=== PATIENT | male | born 1960 | race Caucasian/White ===

== ENCOUNTER → 2017-07-05 | Outpatient (CLI) | payer SELFPAY ==
[~2017-07-05] MED LIST: ATEN25 PO; Omeprazole20 M1 PO
[2017-07-05 13:45] LABS: CHOL/HDL RATIO 5.1; Cholesterol 257 mg/dL (50-200); HDL Cholesterol 50 mg/dL (>39); LDL/HDL RATIO 3.7; Low Density Lipoprotein Chol 184 mg/dL (0-110); Triglycerides 114 mg/dL (30-160); Very Low Density Lipoprot Chol 22 mg/dL (6-32)
== END ==
LOC: LAB SHORT 11:58 → LAB 11:58
PROVIDERS: Hospitalist
DX: E78.2 Mixed hyperlipidemia (principal)
CPT/HCPCS: 80061

== ENCOUNTER 2018-09-22 11:13 | Observation (INO) | payer BC ==
[~2018-09-22] VITALS: Ht 175.3 cm; Wt 68.0 kg
[2018-09-22] MEDS ORDERED: PRAV20 PO (11:35)
[2018-09-22 12:04] LABS: BASOPHILS ABSOLUTE AUTO 0.07 K/mm3 (0.00-0.23); BASOPHILS PERCENT AUTO 1 % (0-2); EOSINOPHILS ABSOLUTE AUTO 0.07 K/mm3 (0.00-0.68); EOSINOPHILS PERCENT AUTO 1 % (0-6); Hematocrit 47.2 % (37.0-53.0); Hemoglobin 15.8 g/dL (13.5-17.5); IMMATURE GRAN ABSOLUTE AUTO 0.02 K/mm3 (0.00-0.10); IMMATURE GRAN PERCENT AUTO 0 % (0-1); LYMPHOCYTES ABSOLUTE AUTO 2.17 K/mm3 (0.84-5.20); LYMPHOCYTES PERCENT AUTO 24 % (21-46); MONOCYTES ABSOLUTE AUTO 0.95 K/mm3 (0.16-1.47); MONOCYTES PERCENT AUTO 10 % (4-13); Mean Corpuscular HGB 31.2 pg (26.0-34.0); Mean Corpuscular HGB Conc 33.5 g/dL (31.5-36.5); Mean Corpuscular Volume 93 fL (80-100); Mean Platelet Volume 10.9 fL (9.1-12.4); NEUTROPHILS ABSOLUTE AUTO 5.88 K/mm3 (1.96-9.15); NEUTROPHILS PERCENT AUTO 64 % (41-73); Platelet Count 255 K/mm3 (150-400); RDW Coefficient Variation 12.4 % (11.7-14.2); RDW Standard Deviation 42.7 fL (35.1-46.3); Red Blood Cell Count 5.06 M/mm3 (4.30-5.90); White Blood Cell Count 9.16 K/mm3 (4.00-11.30)
[2018-09-22 12:16] LABS: Alanine Aminotransfer (ALT/SGP 28 U/L (12-78); Albumin, Blood 4.2 g/dL (3.4-5.0); Albumin/Globulin Ratio 1.2 (0.8-1.8); Alk Phos 96 U/L (50-136); Anion Gap 11 mmol/L (6-16); Aspartate Aminotrans (AST/SGOT 29 U/L (12-37); Bilirubin, Total 0.7 mg/dL (0.1-1.0); Blood Urea Nitrogen 16 mg/dL (8-24); Bun/Creatinine Ratio 18.7 (12.0-20.0); CO2, Blood 23 mmol/L (21-32); Chloride, Blood 106 mmol/L (98-108); Creatinine, Blood 0.86 mg/dL (0.60-1.20); Globulin, Blood 3.6 g/dL (2.2-4.0); Glomerular Filtration Rate >60 (60-); Glucose, Blood 84 mg/dL (70-99); Sodium, Blood 140 mmol/L (136-145); Total Protein, Blood 7.8 g/dL (6.4-8.2)
--- NOTE | 2018-09-22 18:37 | NUR ---
PT. LYING IN BED REPORTING FEET ACHING AND HAS A HEADACHE ALONG WITH STOMACH ACHE. FEET WRAPPED IN WARMED BLANKET. CALLED POISON CONTROL AFTER THEY CONTACTED ME REGARDING THE PT'S BLACK BITE. PT. HAS SLEPT SINCE ARRIVING TO THE FLOOR. COULD NOT SEE A BITE OF ANY KIND ON THE PT'S SCROTUM POISON CONTROL REPORTED THAT SOMETIMES THERE IS NOT A BITE ANDRES. NO OTHER NOTEABLE CHANGES.
--- NOTE | 2018-09-22 20:33 | NUR ---
DR James Christian called and checked on condition of PT and we discussed s/sx he is having, pain and spasm and bilat feet and le ache burn deep. and sue RN discussed case with Poison control. PT medicated with antiemetic and antispamotic and IV dilaudid 0.5 mg as well as zofran. Had abd xray and PT reports severe abd cramping spasm improved. Family at bedside supportive and concerned. Updated PT and Family in MD call and plan of care. PT is hard of hearing but able to communicate if you speak loudly. Continues to CO some bilat le pain elevated foot of bed. Resting quietly now.
--- NOTE | 2018-09-22 22:22 | NUR ---
Poison control called and reviewed PT's current s/sx and vital signs meds and response. They will continue to follow. PT is weal and shakey up to void, pain better but bilat le still painful.
--- NOTE | 2018-09-23 06:18 | NUR ---
UPDATED POISON CONTROL ON PTS S/SX VITAL SIGNS AND PAIN LEVEL. STILL HAVING PAIN OF 6.5 OF 10 THIS AM IN BILAT FEET AND NO UPPER LEG OR TESTICLE PAIN OR ABD PAIN. INTERMITTANT CHILLS NO FEVER VSS. tOLERATING ORALS TAKES FLUIDS WELL. STILL VERY UNSTEADY AND SHAKY ON FEET. ENCOURAGED CALLING FOR ASSIST OR USING URINAL AT BEDSIDE. NEEDED iv DILAUDID 1 MG X 2 DOSES DURING 12 HR SHIFT AND TYLENOL 650 MG JUST PRIOR TO SHIFT AND THIS AM , BACLOFEN FOR SPASM TYPE PAIN. MEDICATED WITH FE AT FOR SLEEP PROMOTION.
[2018-09-23 08:37] LABS: BASOPHILS ABSOLUTE AUTO 0.03 K/mm3 (0.00-0.23); BASOPHILS PERCENT AUTO 0 % (0-2); EOSINOPHILS ABSOLUTE AUTO 0.01 K/mm3 (0.00-0.68); EOSINOPHILS PERCENT AUTO 0 % (0-6); Hemoglobin 14.4 g/dL (13.5-17.5); IMMATURE GRAN ABSOLUTE AUTO 0.03 K/mm3 (0.00-0.10); IMMATURE GRAN PERCENT AUTO 0 % (0-1); LYMPHOCYTES ABSOLUTE AUTO 1.46 K/mm3 (0.84-5.20); LYMPHOCYTES PERCENT AUTO 12 % (21-46); MONOCYTES ABSOLUTE AUTO 1.14 K/mm3 (0.16-1.47); MONOCYTES PERCENT AUTO 9 % (4-13); Mean Corpuscular HGB 30.8 pg (26.0-34.0); Mean Corpuscular HGB Conc 33.5 g/dL (31.5-36.5); Mean Corpuscular Volume 92 fL (80-100); Mean Platelet Volume 10.9 fL (9.1-12.4); NEUTROPHILS ABSOLUTE AUTO 9.81 K/mm3 (1.96-9.15); NEUTROPHILS PERCENT AUTO 79 % (41-73); Platelet Count 216 K/mm3 (150-400); RDW Coefficient Variation 12.6 % (11.7-14.2); RDW Standard Deviation 41.9 fL (35.1-46.3); Red Blood Cell Count 4.68 M/mm3 (4.30-5.90); White Blood Cell Count 12.48 K/mm3 (4.00-11.30)
[2018-09-23 08:58] LABS: Alanine Aminotransfer (ALT/SGP 52 U/L (12-78); Albumin, Blood 3.7 g/dL (3.4-5.0); Albumin/Globulin Ratio 1.1 (0.8-1.8); Alk Phos 87 U/L (50-136); Anion Gap 8 mmol/L (6-16); Aspartate Aminotrans (AST/SGOT 47 U/L (12-37); Bilirubin, Total 0.8 mg/dL (0.1-1.0); Blood Urea Nitrogen 13 mg/dL (8-24); Bun/Creatinine Ratio 18.1 (12.0-20.0); CO2, Blood 23 mmol/L (21-32); Calcium, Blood 8.6 mg/dL (8.5-10.1); Chloride, Blood 103 mmol/L (98-108); Creatinine, Blood 0.72 mg/dL (0.60-1.20); Globulin, Blood 3.4 g/dL (2.2-4.0); Glomerular Filtration Rate >60 (60-); Glucose, Blood 116 mg/dL (70-99); Potassium, Blood 4.1 mmol/L (3.5-5.5); Sodium, Blood 134 mmol/L (136-145); Total Protein, Blood 7.1 g/dL (6.4-8.2)
[2018-09-23 12:54] LABS: Source, Urine Clean Catch
[2018-09-23 13:00] LABS: Appearance, Urine Clear (Clear); Bilirubin, Urine Neg (Neg); Blood, Urine Neg (Neg); Color, Urine Yellow (P-Yellow); Glucose Qualitative, Urine Neg (Neg); Ketones, Urine 3+ (Neg); Leukocyte Esterase, Urine Neg (Neg); Nitrite, Urine Neg (Neg); Protein, Urine Neg (Neg); Specific Gravity, Urine 1.015 (1.003-1.022); Urobilinogen, Urine NORM (Normal)
[2018-09-23 13:32] LABS: CPK Creatine Kinase 269 U/L (39-308)
--- NOTE | 2018-09-23 17:27 | NUR ---
SHIFT SUMMARY PT A&Ox4. CALM AND COOPERATIVE WITH CARE. PT RESTING IN BED, UP TO BATHROOM TO VOID. PT REPORTS BURNING, ACHE IN BLE, ANKLE JOINTS AND KNEES AFFECTED THE MOST, MEDICATED PER EMAR. PT REPORTS MUSCLES SPASMS, MEDICATED x1 WITH ATIVAN. PT'S TEETH CHATTERING, PT DENIES CHILLS AND FEELING COLD. PT DENIES SOB AND N/V DURING SHIFT. NO BM, PT STATES PASSING FLATULENCE. PT RECEIVING IV FLUIDS BOLUS THIS EVEING. VSS. NO OTHER ACUTE CHANGES NOTED DURING SHIFT. WILL CONTINUE TO MONITOR UNTIL REPORT GIVEN TO ONCOMING RN.
[2018-09-24 06:33] LABS: BASOPHILS ABSOLUTE AUTO 0.04 K/mm3 (0.00-0.23); BASOPHILS PERCENT AUTO 1 % (0-2); EOSINOPHILS ABSOLUTE AUTO 0.03 K/mm3 (0.00-0.68); EOSINOPHILS PERCENT AUTO 0 % (0-6); Hematocrit 40.2 % (37.0-53.0); Hemoglobin 13.9 g/dL (13.5-17.5); IMMATURE GRAN ABSOLUTE AUTO 0.02 K/mm3 (0.00-0.10); IMMATURE GRAN PERCENT AUTO 0 % (0-1); LYMPHOCYTES PERCENT AUTO 14 % (21-46); MONOCYTES ABSOLUTE AUTO 0.84 K/mm3 (0.16-1.47); MONOCYTES PERCENT AUTO 10 % (4-13); Mean Corpuscular HGB 31.8 pg (26.0-34.0); Mean Corpuscular HGB Conc 34.6 g/dL (31.5-36.5); Mean Corpuscular Volume 92 fL (80-100); Mean Platelet Volume 10.8 fL (9.1-12.4); NEUTROPHILS ABSOLUTE AUTO 6.41 K/mm3 (1.96-9.15); NEUTROPHILS PERCENT AUTO 75 % (41-73); Platelet Count 188 K/mm3 (150-400); RDW Coefficient Variation 12.4 % (11.7-14.2); RDW Standard Deviation 42.1 fL (35.1-46.3); Red Blood Cell Count 4.37 M/mm3 (4.30-5.90); White Blood Cell Count 8.54 K/mm3 (4.00-11.30)
[2018-09-24 06:49] LABS: Anion Gap 9 mmol/L (6-16); Blood Urea Nitrogen 4 mg/dL (8-24); Bun/Creatinine Ratio 5.7 (12.0-20.0); CO2, Blood 26 mmol/L (21-32); Calcium, Blood 8.9 mg/dL (8.5-10.1); Chloride, Blood 102 mmol/L (98-108); Glomerular Filtration Rate >60 (60-); Glucose, Blood 104 mg/dL (70-99); Potassium, Blood 3.8 mmol/L (3.5-5.5); Sodium, Blood 137 mmol/L (136-145)
--- NOTE | 2018-09-24 07:36 | NUR ---
Rn summary: Patient is alert and oriented x4. He is [place]. Pt c/o shakes and being clammy. Pt did get up and shower last evening. Pt states he did not rest more than a few hours. Pt was medicated for pain x2 this shift with good relief. Pt is up in room independantly. Pt has pain in his feet and lower legs with some cramping. No nausia. Call light in reach.
--- NOTE | 2018-09-24 14:47 | NUR ---
PT SPOUSE CALLED EXPRESSING CONCERNS REGARDING PATIENT CONDITION, ASKING FOR PATIENT TO BE TRANSFERED TO [facility]. NOTIFIED DR DALTON, DR DALTON TO CONTACT SPOUSE. WILL CONTINUE TO MONITOR.
[2018-09-24] MEDS ORDERED: LORA.5 PO (17:57)
[2018-09-24] MEDS ORDERED: IBUP600 PO (17:57)
[2018-09-24] MEDS ORDERED: CEPH500 PO (18:00)
--- NOTE | 2018-09-24 18:37 | NUR ---
DISCHARGE SUMMARY PT A&Ox4. CALM AND COOPERATIVE WITH CARE. PT RESTING IN BED DURING SHIFT. UP IND IN ROOM AND SBA IN HALLS. PT REPORTS PAIN IN BLE, KNEES DOWN, 3-4/10 ON PAIN SCALE, MEDICATED X1 WITH TYLENOL. MUSCLE SPASMS/TREMORS NOTED, MEDICATED X1 WITH ATIVAN. PT DENIES SOB AND N/V T/O SHIFT. ELEVATED BP NOTED, MEDICATED PER SCHEDULE MEDICATION WITH POSITIVE RESULTS. OTHER VSS. NO OHTER ACUTE CHANGE NOTED DURING SHIFT. LUC RN FROM POSION CONTROL UPDATED THIS AFTERNOON. PT AND FAMILY EDUCATED ON DISCHARGE INSTRUCTIONS, MEDICATIONS AND FOLLOW UP APPOINTMENTS. PT RECEIVED PHYSICAL PRESCRIPTIONS TO TAKE TO PHARMACY. PT LEFT ROOM VIA WHEELCHAIR, PT STABLE UPON DISCHRAGE.
== END 2018-09-24 18:33 | disposition home or self-care (01) ==
LOC: ER 11:13 → MEDS 11:15 → ENPENDDIS 09-24 17:20 → MEDS 09-24 18:33
PROVIDERS: Emergency Medicine; ADMIT Family Medicine
DX: T63.311A Toxic effect of venom of black widow spider, accidental (unintentional), initial encounter (principal); R10.9 Unspecified abdominal pain; R93.89 Abnormal findings on diagnostic imaging of other specified body structures; M62.838 Other muscle spasm; E78.5 Hyperlipidemia, unspecified; I10 Essential (primary) hypertension; K21.9 Gastro-esophageal reflux disease without esophagitis; Z79.899 Other long term (current) drug therapy
CPT/HCPCS: 36415; 74018; 74177; 80048; 80053; 81003; 82550; 85025; 90471; 90714; 96361; 96374; 96375; 96376; 99285-25; A9270; G0378; J1170; J1885; J2060; J2270; J2405; J7030; Q9967

== ENCOUNTER → 2019-12-02 | Outpatient (CLI) | payer BC ==
[~2019-12-02] MED LIST changes: +CEPH500 PO; +IBUP600 PO; +LORA.5 PO; +PRAV20 PO
[2019-12-02 16:12] LABS: Alanine Aminotransfer (ALT/SGP 28 U/L (12-78); Albumin/Globulin Ratio 1.3 (0.8-1.8); Alk Phos 73 U/L (50-136); Anion Gap 4 mmol/L (6-16); Aspartate Aminotrans (AST/SGOT 14 U/L (12-37); Bilirubin, Total 0.5 mg/dL (0.1-1.0); Blood Urea Nitrogen 14 mg/dL (8-24); Bun/Creatinine Ratio 15.2 (12.0-20.0); CO2, Blood 31 mmol/L (21-32); Calcium, Blood 9.2 mg/dL (8.5-10.1); Chloride, Blood 106 mmol/L (98-108); Creatinine, Blood 0.92 mg/dL (0.60-1.20); Globulin, Blood 3.1 g/dL (2.2-4.0); Glomerular Filtration Rate >60 (60-); Glucose, Blood 96 mg/dL (70-99); Potassium, Blood 4.7 mmol/L (3.5-5.5); Sodium, Blood 141 mmol/L (136-145); Total Protein, Blood 7.1 g/dL (6.4-8.2)
[2019-12-03 17:25] LABS: CHOL/HDL RATIO 3.9; Cholesterol 213 mg/dL (50-200); HDL Cholesterol 54 mg/dL (>39); LDL/HDL RATIO 2.7; Low Density Lipoprotein Chol 148 mg/dL (0-110); Triglycerides 53 mg/dL (30-160); Very Low Density Lipoprot Chol 10 mg/dL (6-32)
== END | disposition home or self-care (01) ==
LOC: LAB 14:50 → LAB SHORT 14:50
PROVIDERS: Hospitalist
DX: E78.2 Mixed hyperlipidemia (principal); R73.9 Hyperglycemia, unspecified; I10 Essential (primary) hypertension
CPT/HCPCS: 80053; 80061; 83036

== ENCOUNTER 2020-08-27 06:14 | Inpatient (IN) | payer BC ==
[~2020-08-27] VITALS: Ht 177.8 cm; Wt 86.3 kg
[2020-08-27 06:47] LABS: BASOPHILS ABSOLUTE AUTO 0.04 K/mm3 (0.00-0.23); BASOPHILS PERCENT AUTO 1 % (0-2); EOSINOPHILS ABSOLUTE AUTO 0.11 K/mm3 (0.00-0.68); EOSINOPHILS PERCENT AUTO 2 % (0-6); Hemoglobin 15.4 g/dL (13.5-17.5); IMMATURE GRAN ABSOLUTE AUTO 0.01 K/mm3 (0.00-0.10); IMMATURE GRAN PERCENT AUTO 0 % (0-1); LYMPHOCYTES ABSOLUTE AUTO 2.19 K/mm3 (0.84-5.20); LYMPHOCYTES PERCENT AUTO 34 % (21-46); MONOCYTES ABSOLUTE AUTO 0.59 K/mm3 (0.16-1.47); MONOCYTES PERCENT AUTO 9 % (4-13); Mean Corpuscular HGB 30.9 pg (26.0-34.0); Mean Corpuscular HGB Conc 34.2 g/dL (31.5-36.5); Mean Corpuscular Volume 90 fL (80-100); Mean Platelet Volume 10.6 fL (9.1-12.4); NEUTROPHILS ABSOLUTE AUTO 3.56 K/mm3 (1.96-9.15); NEUTROPHILS PERCENT AUTO 55 % (41-73); Platelet Count 214 K/mm3 (150-400); RDW Coefficient Variation 12.5 % (11.7-14.2); Red Blood Cell Count 4.99 M/mm3 (4.30-5.90)
[2020-08-27 06:58] LABS: Alanine Aminotransfer (ALT/SGP 28 U/L (12-78); Albumin, Blood 3.7 g/dL (3.4-5.0); Albumin/Globulin Ratio 1.1 (0.8-1.8); Alk Phos 73 U/L (50-136); Anion Gap 4 mmol/L (6-16); Aspartate Aminotrans (AST/SGOT 17 U/L (12-37); Bilirubin, Total 0.5 mg/dL (0.1-1.0); Blood Urea Nitrogen 17 mg/dL (8-24); Bun/Creatinine Ratio 19.3 (12.0-20.0); CO2, Blood 29 mmol/L (21-32); Calcium, Blood 8.8 mg/dL (8.5-10.1); Chloride, Blood 107 mmol/L (98-108); Creatinine, Blood 0.88 mg/dL (0.60-1.20); Globulin, Blood 3.5 g/dL (2.2-4.0); Glomerular Filtration Rate >60 (60-); Glucose, Blood 99 mg/dL (70-99); Sodium, Blood 140 mmol/L (136-145); Total Protein, Blood 7.2 g/dL (6.4-8.2); Troponin I 0.103 ng/mL (0.000-0.040)
[2020-08-27 08:09] LABS: CHOL/HDL RATIO 3.8; Cholesterol 214 mg/dL (50-200); HDL Cholesterol 56 mg/dL (>39); LDL/HDL RATIO 2.5; Low Density Lipoprotein Chol 141 mg/dL (0-110); Triglycerides 83 mg/dL (30-160); Very Low Density Lipoprot Chol 16 mg/dL (6-32)
[2020-08-27 08:14] LABS: International Normalized Ratio 0.95; Prothrombin Time Results 10.3 Sec (9.7-11.5)
[2020-08-27 12:12] LABS: SARS-Cov-2 (COVID-19) PCR, MMC NEGATIVE (NEGATIVE)
--- NOTE | 2020-08-27 12:42 | NUR ---
UPDATE PT TAKEN TO [facility]IL INSPECTOR FOR ANGIOGRAM. WILL AWAIT RETURN.
--- NOTE | 2020-08-27 14:49 | NUR ---
UPDATE PT RETRUNED FROM THE SUPERVISOR VAT HOUSE. VS STABLE. PT DENIES ANY PAIN. RIGHT RADIAL SITE WITH 8ML IN TR BAND. NO HEMATOMA, BLEEDING, OR BRUISING NOTED. PLAN FOR PT TO BE TRANSFERRED TO [facility] FOR CABG. REPORT GIVEN TO FEI CERNA AT [facility]. PT AWAITING TRANSPORT.
== END 2020-08-27 15:09 | disposition short-term general hospital (02) | DRG 282 ==
LOC: ER 06:14 → ERHOLD 07:48 → ICUE 07:48
PROVIDERS: Emergency Medicine; Internal Medicine Cardiovascular Disease; Pharmacist; ADMIT Family Medicine
PROC: 4A023N7 Measurement of Cardiac Sampling and Pressure, Left Heart, Percutaneous Approach (ICD-10-PCS; principal; 2020-08-27)
PROC: B2111ZZ Fluoroscopy of Multiple Coronary Arteries using Low Osmolar Contrast (ICD-10-PCS; 2020-08-27)
DX: I21.4 Non-ST elevation (NSTEMI) myocardial infarction (principal); F17.220 Nicotine dependence, chewing tobacco, uncomplicated; E78.5 Hyperlipidemia, unspecified; K21.9 Gastro-esophageal reflux disease without esophagitis; I10 Essential (primary) hypertension; I25.118 Atherosclerotic heart disease of native coronary artery with other forms of angina pectoris
CPT/HCPCS: 36415; 71046; 80053; 80061; 83690; 84484; 85025; 85379; 85610; 85730; 93005; 93010; 93306; 93454; 93458; 96374-59; 99152; 99153; 99285-25; A9270; C1769; C1894; J1644; J2250; J3010; J7030; J7050; Q9967; U0004

== ENCOUNTER 2020-10-02 10:40 | Inpatient (IN) | payer BC ==
[~2020-10-02] VITALS: Ht 177.8 cm; Wt 78.5 kg
[2020-10-02 11:08] LABS: BASOPHILS ABSOLUTE AUTO 0.03 K/mm3 (0.00-0.23); BASOPHILS PERCENT AUTO 0 % (0-2); EOSINOPHILS PERCENT AUTO 2 % (0-6); Hematocrit 42.1 % (37.0-53.0); IMMATURE GRAN ABSOLUTE AUTO 0.02 K/mm3 (0.00-0.10); IMMATURE GRAN PERCENT AUTO 0 % (0-1); LYMPHOCYTES PERCENT AUTO 21 % (21-46); MONOCYTES ABSOLUTE AUTO 0.76 K/mm3 (0.16-1.47); MONOCYTES PERCENT AUTO 9 % (4-13); Mean Corpuscular HGB 30.1 pg (26.0-34.0); Mean Corpuscular HGB Conc 33.3 g/dL (31.5-36.5); Mean Corpuscular Volume 91 fL (80-100); Mean Platelet Volume 10.9 fL (9.1-12.4); NEUTROPHILS ABSOLUTE AUTO 5.64 K/mm3 (1.96-9.15); NEUTROPHILS PERCENT AUTO 67 % (41-73); Platelet Count 213 K/mm3 (150-400); RDW Coefficient Variation 12.4 % (11.7-14.2); RDW Standard Deviation 40.9 fL (35.1-46.3); Red Blood Cell Count 4.65 M/mm3 (4.30-5.90); White Blood Cell Count 8.45 K/mm3 (4.00-11.30)
[2020-10-02 11:34] LABS: Alanine Aminotransfer (ALT/SGP 18 U/L (12-78); Albumin, Blood 3.7 g/dL (3.4-5.0); Albumin/Globulin Ratio 1.1 (0.8-1.8); Alk Phos 91 U/L (50-136); Anion Gap 5 mmol/L (6-16); Aspartate Aminotrans (AST/SGOT 15 U/L (12-37); Bilirubin, Total 0.5 mg/dL (0.1-1.0); Blood Urea Nitrogen 13 mg/dL (8-24); Bun/Creatinine Ratio 13.1 (12.0-20.0); CO2, Blood 26 mmol/L (21-32); Calcium, Blood 8.8 mg/dL (8.5-10.1); Chloride, Blood 105 mmol/L (98-108); Creatinine, Blood 0.99 mg/dL (0.60-1.20); Globulin, Blood 3.4 g/dL (2.2-4.0); Glomerular Filtration Rate >60 (60-); Glucose, Blood 111 mg/dL (70-99); Sodium, Blood 136 mmol/L (136-145); Total Protein, Blood 7.1 g/dL (6.4-8.2); Troponin I <0.015 ng/mL (0.000-0.040)
[2020-10-02] MEDS ORDERED: ASPI81CH PO (15:47)
--- NOTE | 2020-10-02 16:12 | NUR ---
ADMISSION PT ARRIVED TO PCU THIS AFTERNOON. PT REPORTS MILD INTERMITTEN CHEST PAIN. PT IS ALERT AND ORIENTED, INDEPENDENT IN THE ROOM. PT IS RESTING AND VISITING WITH HIS AT THIS TIME
--- NOTE | 2020-10-02 18:47 | NUR ---
SHIFT SUMMARY PT WAS ADMITTED TO PCU THIS AFTERNOON AFTER HAVING CHEST PAIN AND ELEVATED TROPONIN. PT'S CP HAS SUBSIDED, VS STABLE, PT ON RA. PT HAD A RECENT CABG COMPLETED AT [facility] APPOXIMATELY 5 WEEKS AGO. PT IS RESTING IN HIS ROOM AT THIS TIME. CARDIOLOGY HAS BEEN CONSULTED BUT HAS NOT SEEN THE PATIENT YET IN PCU. MEDICAL RECORDS FROM [facility] HAVE BEEN REQUESTED.
[2020-10-02 20:17] LABS: International Normalized Ratio 1.01; Prothrombin Time Results 10.9 Sec (9.7-11.5)
--- NOTE | 2020-10-02 22:02 | NUR ---
HOSP NOTIFIED HOSPITALIST NOTIFIED THAT THE PT HAD A 6 BEAT RUN OF VTACH @ APPROX 2135 & CONTINUES TO HAVE OCCASIONAL PVC'S. PT WAS RESTING IN BED AT THE TIME, HE REMAINS ASYMPTOMATIC. MAGNESIUM LEVEL WAS ORDERED, LAB NOTIFIED.
[2020-10-03 04:16] LABS: Hematocrit 40.5 % (37.0-53.0); Hemoglobin 13.6 g/dL (13.5-17.5); Mean Corpuscular HGB 29.8 pg (26.0-34.0); Mean Corpuscular HGB Conc 33.6 g/dL (31.5-36.5); Mean Corpuscular Volume 89 fL (80-100); Mean Platelet Volume 10.9 fL (9.1-12.4); Platelet Count 189 K/mm3 (150-400); RDW Coefficient Variation 12.5 % (11.7-14.2); RDW Standard Deviation 40.3 fL (35.1-46.3); Red Blood Cell Count 4.56 M/mm3 (4.30-5.90); White Blood Cell Count 8.03 K/mm3 (4.00-11.30)
[2020-10-03 05:00] LABS: Anion Gap 6 mmol/L (6-16); Blood Urea Nitrogen 11 mg/dL (8-24); Bun/Creatinine Ratio 13.9 (12.0-20.0); CO2, Blood 26 mmol/L (21-32); Calcium, Blood 8.7 mg/dL (8.5-10.1); Chloride, Blood 106 mmol/L (98-108); Creatinine, Blood 0.79 mg/dL (0.60-1.20); Glomerular Filtration Rate >60 (60-); Glucose, Blood 95 mg/dL (70-99); Sodium, Blood 138 mmol/L (136-145)
--- NOTE | 2020-10-03 05:35 | NUR ---
SHIFT SUMMARY PT HAS BEEN ABLE TO REST THROUGH THE NIGHT WITH NO C/O CP/PRESSURE, VSS, ON RA, INDEPENDENT IN THE ROOM. PT IS CURRENTLY ON A HEPARIN GTT INFUSING @ 13 U/KG/HR. PT REMAINS ASYMPTOMATIC TO PVC'S. WAS ABLE TO CONSULT ON THE PT LAST NIGHT, PT'S WAS AT THE BEDSIDE DURING THE CONVERSATION. PT HAS BEEN NPO SINCE MIDNIGHT PER ORDERS. ECHO SCHEDULED FOR THIS AM. WCTM & REPORT TO DAY RN. CALL LIGHT IN REACH.
--- NOTE | 2020-10-03 10:15 | NUR ---
echocardiogram completed
[2020-10-03 10:28] LABS: SARS-Cov-2 (COVID-19) PCR, MMC NEGATIVE (NEGATIVE)
--- NOTE | 2020-10-03 13:13 | NUR ---
PT TO PRODUCT DEVELOPMENT CHEMIST PT TO PRODUCT DEVELOPMENT CHEMIST WITH CHART, CONSENT, MEDICAL RECORDS FROM [facility] BY JANNETTE.
--- NOTE | 2020-10-03 19:40 | NUR ---
SHIFT SUMMARY PT ALERT AND ORIENTED X 4. HR STABLE. BP STABLE. NO CP OR PRESSURE REPORTED DURING SHIFT. PT IND IN ROOM. MAP REMAINED ABOVE 65. PT TO [employer] SUPER[facility] THIS AFTERNOON. PT NPO PRIOR TO PROCEDURE. UPON ARRIVAL BACK TO UNIT FROM [employer] [facility] POST OP VITAL SIGNS STABLE. L RADIAL SITE WNL, TR BAND IN PLACE. AIR REMOVAL BEGAN AT 1840. 4 ML OF AIR REMOVED PRIOR TO END OF SHIFT. TOTAL OF 9 ML IN TR BAND. SITE WNL. PULSES STRONG. SENSATION INTACT IN FINGERS. HEPARIN GTT DC'D PER PHYSICIAN ORDER. ARM BOARD IN PLACE. PT'S AT BEDSIDE. REPORT GIVEN TO NEHEMIAH LEWIS.
--- NOTE | 2020-10-03 23:54 | NUR ---
TR BAND OFF AT 2333. TEGADERM PLACED. SPLINT IN PLACE.
--- NOTE | 2020-10-04 05:12 | NUR ---
SHIFT SUMMARY PT IS A/O X4. THERE HAVE BEEN NO ACUTE CHANGES. PT HAS TR BAND REMOVED AND SPLINT IN PLACE. SKING IS CDI WITH SOCO HEMATOMA. PT DENIES CHEST PAIN OR SOB. PT IS UP AD JUDY IN ROOM. USING CALL LIGHT APPROPRIETLY.
[2020-10-04] MEDS ORDERED: Metoprolol Tart25 MG PO (11:05)
[2020-10-04] MEDS ORDERED: ATORVASTATIN CA80 MG PO (11:07)
[2020-10-04] MEDS ORDERED: NITR.4SL SL (11:07)
[2020-10-04] MEDS ORDERED: TICA90TA PO (11:07)
--- NOTE | 2020-10-04 14:09 | NUR ---
PT DISHCARGE PT PROVIDED WITH DISCHARGE INSTRUCTIONS PER PHYSICIAN. PT NOTIFIED OF FOLLOW UP APT'S AND PHYSICIAN CONTACT INFORMATION. PROVIDED WITH RADIAL SITE CARE INFORMATION PACKET. VS STABLE. IV REMOVED. TELE REMOVED. MEDICATIONS FAXED TO PT'S PREFERRED PHARMACY. PT BROUGHT WITH ALL BELONGINGS OUT TO GUEST ENTERANCE FOR MOTHER TO PICK HIM UP.
== END 2020-10-04 13:20 | disposition home or self-care (01) | DRG 246 ==
LOC: ER 10:40 → PCU 14:44
PROVIDERS: Pharmacist; Physician Assistant; ADMIT Internal Medicine
PROC: 027235Z Dilation of Coronary Artery, Three Arteries with Two Drug-eluting Intraluminal Devices, Percutaneous Approach (ICD-10-PCS; principal; 2020-10-03)
PROC: B2111ZZ Fluoroscopy of Multiple Coronary Arteries using Low Osmolar Contrast (ICD-10-PCS; 2020-10-03)
PROC: B2181ZZ Fluoroscopy of Left Internal Mammary Bypass Graft using Low Osmolar Contrast (ICD-10-PCS; 2020-10-03)
PROC: B2131ZZ Fluoroscopy of Multiple Coronary Artery Bypass Grafts using Low Osmolar Contrast (ICD-10-PCS; 2020-10-03)
PROC: B240ZZ3 Ultrasonography of Single Coronary Artery, Intravascular (ICD-10-PCS; 2020-10-03)
DX: I97.190 Other postprocedural cardiac functional disturbances following cardiac surgery (principal); I21.A9 Other myocardial infarction type; I25.42 Coronary artery dissection; T82.218A Other mechanical complication of coronary artery bypass graft, initial encounter; Z20.822 Contact with and (suspected) exposure to COVID-19; K21.9 Gastro-esophageal reflux disease without esophagitis; E78.5 Hyperlipidemia, unspecified; I25.10 Atherosclerotic heart disease of native coronary artery without angina pectoris; I10 Essential (primary) hypertension; Z90.89 Acquired absence of other organs; Z95.1 Presence of aortocoronary bypass graft; Z79.899 Other long term (current) drug therapy; Z87.891 Personal history of nicotine dependence; Z79.82 Long term (current) use of aspirin; Y83.2 Surgical operation with anastomosis, bypass or graft as the cause of abnormal reaction of the patient, or of later complication, without mention of misadventure at the time of the procedure
CPT/HCPCS: 36415; 71046; 76937; 80048; 80053; 83735; 84484; 85025; 85027; 85347; 85610; 85730; 92978; 93005; 93010; 93306; 93455; 96374; 96375; 99152; 99153; 99285-25; A9270; C1725; C1753; C1769; C1874; C1887; C1894; C9600; C9601; J1644; J2250; J2270; J2405; J3010; J7030; J7040; J7050; Q9967; U0004

== ENCOUNTER 2022-02-28 09:43 | Day surgery (SDC) | payer BC ==
[~2022-02-28 09:43] MED LIST changes: +ASPI81CH PO; +ATORVASTATIN CA80 MG PO; +Metoprolol Tart25 MG PO; +NITR.4SL SL; +TICA90TA PO
[2022-02-28] MEDS ORDERED: ACET325 (11:16)
== END 2022-02-28 12:35 | disposition home or self-care (01) ==
DX: Z12.11 Encounter for screening for malignant neoplasm of colon (principal); Z86.010 Personal history of colon polyps; K21.9 Gastro-esophageal reflux disease without esophagitis; E78.5 Hyperlipidemia, unspecified; I10 Essential (primary) hypertension; Z87.891 Personal history of nicotine dependence; Z79.82 Long term (current) use of aspirin; Z79.899 Other long term (current) drug therapy

== ENCOUNTER → 2024-07-09 | Outpatient (CLI) | payer BC ==
[~2024-07-09] MED LIST changes: +ACET325
[2024-07-09 18:59] LABS: BASOPHILS ABSOLUTE AUTO 0.05 K/mm3 (0.00-0.23); BASOPHILS PERCENT AUTO 1 % (0-2); EOSINOPHILS ABSOLUTE AUTO 0.05 K/mm3 (0.00-0.68); EOSINOPHILS PERCENT AUTO 1 % (0-6); Hemoglobin 14.5 g/dL (13.5-17.5); IMMATURE GRAN ABSOLUTE AUTO 0.01 K/mm3 (0.00-0.10); IMMATURE GRAN PERCENT AUTO 0 % (0-1); LYMPHOCYTES ABSOLUTE AUTO 1.28 K/mm3 (0.84-5.20); LYMPHOCYTES PERCENT AUTO 36 % (21-46); MONOCYTES ABSOLUTE AUTO 0.53 K/mm3 (0.16-1.47); MONOCYTES PERCENT AUTO 15 % (4-13); Mean Corpuscular HGB Conc 34.5 g/dL (31.5-36.5); Mean Corpuscular Volume 96 fL (80-100); Mean Platelet Volume 11.1 fL (9.1-12.4); NEUTROPHILS ABSOLUTE AUTO 1.66 K/mm3 (1.96-9.15); NEUTROPHILS PERCENT AUTO 46 % (41-73); Platelet Count 155 K/mm3 (150-400); RDW Coefficient Variation 12.8 % (11.7-14.2); RDW Standard Deviation 45.5 fL (35.1-46.3); Red Blood Cell Count 4.39 M/mm3 (4.30-5.90); White Blood Cell Count 3.58 K/mm3 (4.00-11.30)
[2024-07-09 19:36] LABS: Albumin, Blood 3.9 g/dL (3.4-5.0); Albumin/Globulin Ratio 1.2 (0.8-1.8); Bilirubin, Total 0.4 mg/dL (0.1-1.0); Bun/Creatinine Ratio 7.7 (12.0-20.0); Calcium, Blood 9.2 mg/dL (8.5-10.1); Creatinine, Blood 0.65 mg/dL (0.60-1.20); Globulin, Blood 3.2 g/dL (2.2-4.0); Potassium, Blood 4.4 mmol/L (3.5-5.5); Thyroid Stimulating Hormone 2.49 uIU/mL (0.360-4.800); Total Protein, Blood 7.1 g/dL (6.4-8.2)
== END ==
LOC: LAB 17:31 → LAB SHORT 17:31
PROVIDERS: Hospitalist
DX: R22.1 Localized swelling, mass and lump, neck (principal); R63.4 Abnormal weight loss; Z12.5 Encounter for screening for malignant neoplasm of prostate
CPT/HCPCS: 80053; 84443; 85025; 85651; G0103

== ENCOUNTER → 2024-08-11 | Outpatient (CLI) | payer BC ==
[2024-08-11 19:15] LABS: BASOPHILS ABSOLUTE AUTO 0.02 K/mm3 (0.00-0.23); BASOPHILS PERCENT AUTO 0 % (0-2); EOSINOPHILS PERCENT AUTO 0 % (0-6); Hematocrit 43.7 % (37.0-53.0); Hemoglobin 15.2 g/dL (13.5-17.5); IMMATURE GRAN ABSOLUTE AUTO 0.01 K/mm3 (0.00-0.10); IMMATURE GRAN PERCENT AUTO 0 % (0-1); LYMPHOCYTES ABSOLUTE AUTO 0.61 K/mm3 (0.84-5.20); LYMPHOCYTES PERCENT AUTO 8 % (21-46); MONOCYTES ABSOLUTE AUTO 0.88 K/mm3 (0.16-1.47); MONOCYTES PERCENT AUTO 12 % (4-13); Mean Corpuscular HGB 33.3 pg (26.0-34.0); Mean Corpuscular HGB Conc 34.8 g/dL (31.5-36.5); Mean Corpuscular Volume 96 fL (80-100); Mean Platelet Volume 11.7 fL (9.1-12.4); NEUTROPHILS ABSOLUTE AUTO 5.79 K/mm3 (1.96-9.15); NEUTROPHILS PERCENT AUTO 79 % (41-73); Platelet Count 217 K/mm3 (150-400); RDW Coefficient Variation 12.6 % (11.7-14.2); RDW Standard Deviation 44.2 fL (35.1-46.3); Red Blood Cell Count 4.57 M/mm3 (4.30-5.90); White Blood Cell Count 7.31 K/mm3 (4.00-11.30)
[2024-08-11 20:15] LABS: Albumin, Blood 3.3 g/dL (3.4-5.0); Bilirubin, Total 0.3 mg/dL (0.1-1.0); Bun/Creatinine Ratio 11.4 (12.0-20.0); Creatinine, Blood 0.79 mg/dL (0.60-1.20); Globulin, Blood 3.2 g/dL (2.2-4.0); Potassium, Blood 4.1 mmol/L (3.5-5.5); Total Protein, Blood 6.5 g/dL (6.4-8.2)
[2024-08-14 17:14] LABS: HEPATITIS C AB CIA INTERP Negative (Negative); HEPATITIS C ANTIBODY CIA INDEX 0.03 IV
== END ==
LOC: LAB SHORT 18:37 → LAB 18:37
PROVIDERS: Hospitalist
DX: R74.01 Elevation of levels of liver transaminase levels (principal); R22.1 Localized swelling, mass and lump, neck
CPT/HCPCS: 80053; 85025; 86803

== ENCOUNTER 2024-11-04 10:53 | Observation (INO) | payer BC ==
[~2024-11-04] VITALS: Ht 180.3 cm; Wt 67.8 kg
[2024-11-04 11:23] LABS: BASOPHILS ABSOLUTE AUTO 0.05 K/mm3 (0.00-0.23); BASOPHILS PERCENT AUTO 1 % (0-2); EOSINOPHILS ABSOLUTE AUTO 0.04 K/mm3 (0.00-0.68); EOSINOPHILS PERCENT AUTO 1 % (0-6); Hematocrit 42.8 % (37.0-53.0); Hemoglobin 15.3 g/dL (13.5-17.5); IMMATURE GRAN ABSOLUTE AUTO 0.01 K/mm3 (0.00-0.10); IMMATURE GRAN PERCENT AUTO 0 % (0-1); LYMPHOCYTES ABSOLUTE AUTO 1.22 K/mm3 (0.84-5.20); LYMPHOCYTES PERCENT AUTO 23 % (21-46); MONOCYTES ABSOLUTE AUTO 0.69 K/mm3 (0.16-1.47); MONOCYTES PERCENT AUTO 13 % (4-13); Mean Corpuscular HGB Conc 35.7 g/dL (31.5-36.5); Mean Corpuscular Volume 94 fL (80-100); NEUTROPHILS ABSOLUTE AUTO 3.42 K/mm3 (1.96-9.15); NEUTROPHILS PERCENT AUTO 63 % (41-73); NRBC ABSOLUTE 0.00 K/mm3 (0.00-0.02); NRBC Auto 0.0 /100 WBC (0.0-0.2); Platelet Count 156 K/mm3 (150-400); RDW Coefficient Variation 13.3 % (11.7-14.2); RDW Standard Deviation 46.5 fL (35.1-46.3)
[2024-11-04 11:41] LABS: Alanine Aminotransfer (ALT/SGP 63.0 U/L (12-78); Albumin, Blood 3.6 g/dL (3.4-5.0); Albumin/Globulin Ratio 0.9 (0.8-1.8); Anion Gap 11.0 mmol/L (3-11); Aspartate Aminotrans (AST/SGOT 81.0 U/L (12-37); Bilirubin, Total 0.5 mg/dL (0.1-1.0); Blood Urea Nitrogen 7.0 mg/dL (8-24); CO2, Blood 26.0 mmol/L (21-32); Calcium, Blood 9.3 mg/dL (8.5-10.1); Chloride, Blood 104.0 mmol/L (98-108); Creatinine, Blood 0.6 mg/dL (0.60-1.20); Globulin, Blood 4.0 g/dL (2.2-4.0); Glucose, Blood 80.0 mg/dL (70-99); Potassium, Blood 3.9 mmol/L (3.5-5.5); Sodium, Blood 137.0 mmol/L (136-145); Total Protein, Blood 7.6 g/dL (6.4-8.2)
[2024-11-04] MEDS ORDERED: Polyethylene Glycol 3350 17 gm PO PRN (15:35)
[2024-11-04 17:07] VITALS: BP 150/94
[2024-11-04] MEDS ORDERED: EZET10 PO (17:11)
--- NOTE | 2024-11-04 18:26 | NUR ---
ADMIT/SHIFT SUMMARY PT ARRIVED TO UNIT AT 1700. ORIENTED TO ROOM. BEVERAGES & FOOD PROVIDED. PT MEDICATED WITH NORVASC FOR HIS BP. PLACED ON TELE. RUNNING NSR-SINUS TACH WITH AMBULATION. NO ACUTE CHANGES IN ASSESSMENT FROM ADMIT ASSESSMENT. PT DENIES CP/PRESSURE. UP IN ROOM. EATING DINNER. DENIES OTHER NEEDS AT THIS TIME.
[2024-11-04 19:28] VITALS: BP 126/88
[2024-11-05 00:22] VITALS: BP 118/78
[2024-11-05 04:17] VITALS: BP 120/91
--- NOTE | 2024-11-05 04:44 | NUR ---
SHIFT SUMMARY 63 YR M ADMITTED ON 11/04/24. FULL CODE. NO ACUTE CHANGES THIS SHIFT. PT HAS BEEN NPO SINCE MIDNIGHT IN ANTICIPATION OF A STRESS TEST AND ECHO THIS A.M. NO ADVERSE EVENTS REPORTED FROM [employer]. PT HAS HAD NO C/O PAIN OR DISCOMFORT AND HAS SLEPT FOR MOST OF THE NIGHT. ABLE TO MAKE HIS NEEDS KNOWN. BED IN LOW POSITION AND CALL LIGHT IN REACH.
[2024-11-05 07:47] VITALS: BP 126/91
[2024-11-05 14:21] VITALS: BP 137/93
--- NOTE | 2024-11-05 14:38 | NUR ---
1438 PT ALERT, ORIENTED, ABLE TO MAKE NEEDS KNOWN. TELE NORMAL SINUS RYTHYM. PT DENIES ANY CHEST PAIN, DISCOMFORT, AND DENIES ANY SOB. PT HAVING STRESS TESTS DONE TODAY WITH PLANS TO DISCHARGE AFTER COMPLETED. APAP GIVEN X1 FOR HEADACHE. PT INDEPENDENT IN ROOM, HAD SHOWER, DENIES ANY UNMET NEEDS AND LOOKS FORWARD TO LEAVING SOON RESULTS FROM STRESS TEST ARE COMPLETED.
--- NOTE | 2024-11-05 18:14 | NUR ---
PT DISCHARGED. IV REMOVED. CATH INTACT. PT TAKEN OUT BY WHEELCHAIR. PT GIVEN DISCHARGE INSTRUCTIONS. ALL QUESTIONS ANSWERED. PT VERBALIZED UNDERSTANDING OF TREATMENT PLAN POST HOSPITAL STAY
== END 2024-11-05 18:29 | disposition home or self-care (01) ==
LOC: ER 10:53 → MEDS 15:32
PROVIDERS: Student in an Organized Health Care Education/Training Program; ADMIT Internal Medicine
DX: R07.89 Other chest pain (principal); I25.10 Atherosclerotic heart disease of native coronary artery without angina pectoris; I10 Essential (primary) hypertension; K21.9 Gastro-esophageal reflux disease without esophagitis; I25.2 Old myocardial infarction; Z95.1 Presence of aortocoronary bypass graft; Z95.5 Presence of coronary angioplasty implant and graft; Z79.82 Long term (current) use of aspirin; Z87.891 Personal history of nicotine dependence; Z79.899 Other long term (current) drug therapy
CPT/HCPCS: 36415; 71046; 78452; 80053; 83690; 84484; 85025; 93005; 93010; 93017; 99285-25; A9270; A9500; G0378; J0706; J2785

== ENCOUNTER 2024-11-06 12:12 | Emergency (ER) | payer BC ==
[~2024-11-06] VITALS: Ht 177.8 cm; Wt 72.6 kg
[~2024-11-06 12:12] MED LIST changes: +EZET10 PO
[2024-11-06 12:39] VITALS: BP 149/84
== END 2024-11-06 12:40 | disposition home or self-care (01) ==
LOC: ER 12:12
DX: T80.1XXA Vascular complications following infusion, transfusion and therapeutic injection, initial encounter (principal); I80.8 Phlebitis and thrombophlebitis of other sites; I10 Essential (primary) hypertension; Z59.89 Other problems related to housing and economic circumstances; Z79.82 Long term (current) use of aspirin; Z79.899 Other long term (current) drug therapy
CPT/HCPCS: 99282

== ENCOUNTER → 2025-03-09 | Outpatient (CLI) | payer BC ==
[2025-03-10 00:24] LABS: Alanine Aminotransfer (ALT/SGP 55 U/L (12-78); Aspartate Aminotrans (AST/SGOT 65 U/L (12-37)
== END ==
LOC: LAB 15:10 → LAB SHORT 15:10
PROVIDERS: Hospitalist
DX: E78.5 Hyperlipidemia, unspecified (principal)
CPT/HCPCS: 84450; 84460